=== PATIENT | female | born 1940 | race Caucasian/White ===

== ENCOUNTER 2018-08-31 06:33 | Day surgery (SDC) | payer OTHER, MEDICARE ==
[2018-08-23 12:18] VITALS: BMI 25.7
[2018-08-31] MEDS ORDERED: CYCLOPENTOLATE HCL 1% OPHTH SOLN 2 ML BOTTLE ONE (06:41)
[2018-08-31] MEDS ORDERED: PHENYLEPHRINE 2.5% OPHTH SOLN 15 ML BOTTLE ONE (06:41)
[2018-08-31] MEDS ORDERED: GENTAMICIN SULFATE 0.3% OPHTHALMIC (EYE DROPS) 5ML BOTTLE ONE (06:41)
[2018-08-31] MEDS ORDERED: TROPICAMIDE 1% OPHTH SOLN 15 ML BOTTLE OD SCH (07:00)
[2018-08-31] MEDS: GENTAMICIN SULFATE 0.3% OPHTHALMIC (EYE DROPS) 5ML BOTTLE OD SCH ×5 (07:15→07:35)
[2018-08-31] MEDS: CYCLOPENTOLATE HCL 1% OPHTH SOLN 2 ML BOTTLE OD SCH ×5 (07:15→07:35)
[2018-08-31] MEDS: PHENYLEPHRINE 2.5% OPHTH SOLN 15 ML BOTTLE OD SCH ×5 (07:15→07:35)
[2018-08-31] MEDS: KETOROLAC TROMETHAMINE 0.5% EYE DROP 1 DROP DROPS OD SCH ×5 (07:15→07:35)
[2018-08-31] MEDS: TROPICAMIDE 1% OPHTH SOLN 15 ML BOTTLE ONE ×5 (07:15→07:35)
[2018-08-31] MEDS ORDERED: BACITRACIN/POLYMYXIN OPH OINT 3.5 GM TUBE ONE (07:46)
[2018-08-31] MEDS ORDERED: EPINEPHrine/PF 1 MG/1 ML (1:1,000) AMPULE ONE (07:47)
[2018-08-31] MEDS ORDERED: TETRACAINE 0.5% OPHTH SOLN 2 ML BOTTLE ONE (07:47)
[2018-08-31] MEDS ORDERED: NEO/POLYMYX B SULF/DEXAMETH OPHTHALMIC 5ML BOTTLE ONE ×2 (07:47→08:24)
[2018-08-31] MEDS ORDERED: EPI-SHUGARCAINE (EPINEPHRINE 0.025% & LIDOCAINE-PF 0.75%) 4ML ONE (07:47)
[2018-08-31] MEDS ORDERED: BETAXOLOL HCL 0.25% OPHTHALMIC 10 ML DROPSBTL ONE (07:47)
[2018-08-31] MEDS ORDERED: ACETYLCHOLINE 1:100 INTRA-OCUL 20 MG/2 ML KIT ONE (07:47)
[2018-08-31] MEDS ORDERED: POVIDONE-IODINE 5% OPHTHALMIC PREP 30 ML SOLUTION ONE (07:47)
[2018-08-31] MEDS ORDERED: MIDAZOLAM HCL 2 MG/2 ML SINGLE DOSE VIAL ONE (08:22)
[2018-08-31] MEDS ORDERED: ACETAMINOPHEN 325 MG TABLET (FP) PO PRN (09:22)
[2018-08-31 09:37] VITALS: TEMP 97.9
[2018-08-31 10:05] VITALS: BP 154/64; PULSE 66
--- NOTE | 2018-08-31 10:10 | OP ---
DATE OF OPERATION: 08/31/2018 AGE: [age] years old. SEX: Female. PREOPERATIVE DIAGNOSIS: Cataract, right eye. POSTOPERATIVE DIAGNOSIS: Cataract, right eye. PROCEDURE: Cataract extraction via phacoemulsification with insertion of posterior chamber lens implant, right eye. SURGEON: Gordo Johnson MD CELL PHONE REPAIR TECHNICIAN: Peggy Snell MD ANESTHESIA: Topical with sedation. ESTIMATED BLOOD LOSS: Less than 1 mL. COMPLICATIONS: None. SPECIMENS: None. DESCRIPTION OF PROCEDURE: Of note, the intraocular lens was a toric lens. The patient was identified in the holding area. After all risks, benefits, and alternatives were explained to the patient, informed consent was obtained. The right eye was marked with a marking pen. The patient then entered the operating room on an eye stretcher. After a formal timeout was performed, topical tetracaine eye drops were instilled into the right eye. Patient was then asked to sit up and look straight ahead at the wall, and the right eye was then marked using a toric bubble marker for the axis of the astigmatism which was noted to be 30 degrees. The patient was then asked to lie back down, and the right eye was then prepped and draped in the usual sterile fashion. An eyelid speculum was placed beneath the eyelids of the right eye. Then, the axis of the astigmatism was marked using a toric marker and a marking pen, and it was noted to be 30 degrees on the cornea. Of note and as an addendum, the main cardinal axes of the astigmatism were marked before the right eye was prepped and draped in the usual sterile fashion. Then, a superotemporal paracentesis incision was created using a 15-degree blade. Topical preservative-free epinephrine and preservative-free lidocaine were then injected into the anterior chamber. Viscoelastic was then injected into the anterior chamber. A 2.4-mm keratome blade was then used to make an inferotemporal incision. A 360-degree, continuous curvilinear capsulorrhexis was then created using bent cystotome and Utrata forceps. Hydrodissection was performed using balanced saline solution on a cannula. Phacoemulsification was introduced to disassemble and remove the nucleus in its entirety. Irrigation/aspiration was then used to remove any remaining cortical material from the eye. The capsular bag was reformed using viscoelastic. An Jose model [id number] with a power of 15.5 diopters, serial number [id number] was inspected, found to be defect free, and injected into the capsular bag. Irrigation/aspiration was then used to remove any remaining viscoelastic from the eye including posterior to the optic. The lens was then rotated so that the axis of the astigmatism on the optic lined up with 30-degree axis of the astigmatism marked on the cornea. After the lens was noted to be perfectly centered and oriented perfectly at the 30-degree axis, intracameral injections of Miochol and Miostat were then administered. The pupil came down and was round. All wounds were hydrated with balanced saline solution and noted to be watertight. Upon inspection, the lens was perfectly centered with the axis of the astigmatism at 30 degrees. The anterior chamber was deep. The eye had adequate pressure, and there was a red reflex present. Then, antibiotic eye drops and ointment were then administered to the right eye. The eyelid speculum was removed from the right eye. The right eye was shielded. The patient tolerated the procedure well, left the operating room in stable condition to follow up in the eye clinic tomorrow morning at 9:00. GORDO JOHNSON M.D. [id number]
== END 2018-08-31 10:15 | disposition home or self-care (01) ==
LOC: FASU 06:33
PROVIDERS: ATTEND Ophthalmology
PROC: 08RJ3JZ Replacement of Right Lens with Synthetic Substitute, Percutaneous Approach (ICD-10-PCS; principal; 2018-08-31 08:43)
DX: H26.9 Unspecified cataract (principal)
CPT/HCPCS: 82962

== ENCOUNTER 2018-12-21 07:17 | Day surgery (SDC) | payer OTHER, MEDICARE ==
[2018-12-16 13:13] VITALS: BMI 24.0
[2018-12-21] MEDS ORDERED: CYCLOPENTOLATE HCL 1% OPHTH SOLN 2 ML BOTTLE ONE (07:41)
[2018-12-21] MEDS ORDERED: OFLOXACIN 0.3% OPHTHALMIC SOLUTION 5 ML BOTTLE ONE (07:41)
[2018-12-21] MEDS ORDERED: KETOROLAC TROMETHAMINE 0.5% EYE DROP 1 DROP DROPS ONE (07:41)
[2018-12-21] MEDS ORDERED: PHENYLEPHRINE 2.5% OPHTH SOLN 15 ML BOTTLE ONE (07:42)
[2018-12-21] MEDS ORDERED: TROPICAMIDE 1% OPHTH SOLN 15 ML BOTTLE ONE (07:42)
[2018-12-21] MEDS: KETOROLAC TROMETHAMINE 0.5% EYE DROP 1 DROP DROPS OS SCH ×5 (08:05→08:25)
[2018-12-21] MEDS: CYCLOPENTOLATE HCL 1% OPHTH SOLN 2 ML BOTTLE OS SCH ×5 (08:05→08:25)
[2018-12-21] MEDS: PHENYLEPHRINE 2.5% OPHTH SOLN 15 ML BOTTLE OS SCH ×5 (08:05→08:25)
[2018-12-21] MEDS: OFLOXACIN 0.3% OPHTHALMIC SOLUTION 5 ML BOTTLE OS SCH ×5 (08:05→08:25)
[2018-12-21] MEDS: TROPICAMIDE 1% OPHTH SOLN 15 ML BOTTLE OS SCH ×5 (08:05→08:25)
[2018-12-21] MEDS ORDERED: POVIDONE-IODINE 5% OPHTHALMIC PREP 30 ML SOLUTION ONE (08:58)
[2018-12-21] MEDS ORDERED: TETRACAINE 0.5% OPHTH SOLN 2 ML BOTTLE ONE (08:58)
[2018-12-21] MEDS ORDERED: ACETYLCHOLINE 1:100 INTRA-OCUL 20 MG/2 ML KIT ONE (08:58)
[2018-12-21] MEDS ORDERED: EPI-SHUGARCAINE (EPINEPHRINE 0.025% & LIDOCAINE-PF 0.75%) 4ML ONE (08:58)
[2018-12-21] MEDS ORDERED: MIDAZOLAM HCL 2 MG/2 ML SINGLE DOSE VIAL ONE (09:24)
[2018-12-21] MEDS ORDERED: CARBACHOL 0.01% INTRA-OCULAR 1.5 ML VIAL ONE (09:31)
[2018-12-21] MEDS ORDERED: ACETAMINOPHEN 325 MG TABLET (FP) PO PRN (10:02)
--- NOTE | 2018-12-21 10:33 | OP ---
DATE OF OPERATION: 12/21/2018 PREOPERATIVE DIAGNOSIS: Cataract, left eye. POSTOPERATIVE DIAGNOSIS: Cataract, left eye. PROCEDURE: Cataract extraction via phacoemulsification with insertion of posterior chamber lens implant, left eye. SURGEON: Gordo Johnson MD DINKEY ENGINE FIRER/FIREMAN: Peggy Snell MD ANESTHESIA: Topical with sedation. ESTIMATED BLOOD LOSS: Less than 1 mL. COMPLICATIONS: None. SPECIMENS: None. PROCEDURE: The patient was identified in the holding area. After all risks, benefits, and alternatives were explained to the patient, informed consent was obtained. The left eye was marked with a marking pen. The patient then entered the operating room on an eye stretcher. After a formal timeout was performed, topical Tetracaine eye drops were instilled onto the left eye. The left eye was then prepped and draped in the usual sterile fashion. An eyelid speculum was placed beneath the eyelids. An infratemporal paracentesis incision was created using a 15-degree blade. Topical preservative-free epinephrine and preservative-free lidocaine was then injected into the anterior chamber. Viscoelastic was injected into the anterior chamber. A 2.4-mm keratome blade was then used to make a superotemporal incision. A 360-degree continuous curvilinear capsulorhexis was then created using bent cystotome and Utrata forceps. Hydrodissection was performed using balanced saline solution on a cannula. Phacoemulsification was introduced to disassemble and remove the nucleus in its entirety. Irrigation/aspiration was then used to remove any remaining cortical material from the eye. The capsular bag was reformed using viscoelastic. An Jose model [id number] with a power of 16.5 diopters, serial number [id number] was inspected and found to be defect-free and injected into the capsular bag. Irrigation/aspiration was then used to remove any remaining viscoelastic from the eye. The anterior chamber was reformed using balanced saline solution. Intracameral injections of Miochol and Miostat were then administered, and the pupil came down and was round. All wounds were hydrated with balanced saline solution and noted to be watertight. The was a red reflex present. The anterior chamber was deep. The eye had an adequate pressure, and the lens was perfectly centered in capsular bag. Topical antibiotic eye drops and ointment were then administered to the left eye. The eyelid speculum was removed from the left eye. The left eye was shielded. The patient tolerated the procedure well and left the operating room in stable condition to follow up in the eye clinic tomorrow morning at 10:00. GORDO JOHNSON M.D. [id number]
[2018-12-21 12:51] VITALS: TEMP 97.8
[2018-12-21 13:02] VITALS: BP 130/70; PULSE 60
== END 2018-12-21 11:20 | disposition home or self-care (01) ==
LOC: FASU 07:17 → FASUSAT 07:17 → FASU 11:20
PROVIDERS: ATTEND Ophthalmology
PROC: 08RK3JZ Replacement of Left Lens with Synthetic Substitute, Percutaneous Approach (ICD-10-PCS; principal; 2018-12-21 09:35)
DX: H26.9 Unspecified cataract (principal)